=== PATIENT | female | born 1975 | race Caucasian/White ===

== ENCOUNTER 2017-09-03 05:30 | Inpatient (IN) | payer BC ==
[2017-08-31 10:48] LABS: EOSINOPHILS 11.4 % (0-7); HEMATOCRIT 43.6 % (36.0-48.0); HEMOGLOBIN 14.7 g/dL (12-16); IMMATURE GRANULOCYTES 0.2 % (0-5); LYMPHOCYTES 31.6 % (15-50); MCH 29.6 pg (26.0-34.0); MCHC 33.7 g/dL (31.0-37.0); MCV 87.7 fL (80.0-100.0); MEAN PLATELET VOLUME 10.9 fL (7.4-10.4); MONOCYTES 5.7 % (2-11); NEUTROPHILS 50.1 % (40-80); PLATELET COUNT 231 10x3/uL (130-400); RBC 4.97 10x6/uL (4.00-5.40); RDW 12.8 % (11.5-14.5); WBC 6.1 10x3/uL (4.8-10.8)
[2017-08-31 11:01] LABS: CALC OSMOLALITY 276 mosm/kg (275-300); CALCIUM 8.4 mg/dL (8.5-10.1); CARBON DIOXIDE 24.4 mmol/L (21.0-32.0); CHLORIDE - SERUM 106 mmol/L (98-107); CREATININE - SERUM 0.7 mg/dL (0.6-1.3); GLUCOSE 93 mg/dL (74-106); POTASSIUM - SERUM 3.7 mmol/L (3.5-5.1); SODIUM 140 mmol/L (136-145); UREA NITROGEN 6 mg/dL (7-18); eGFR NON AFRICAN AMERICAN > 90 mL/min (90-120)
[2017-09-03] VITALS (10 sets, daily range): BP systolic 122–141; BP diastolic 74–94; BMI 25.9
[~2017-09-03] VITALS: Ht 172.7 cm; Wt 77.3 kg
[~2017-09-03 05:30] MED LIST: AMBIEN10 MG PO; ZESTRIL20 MG PO
[2017-09-03 07:08] LABS: HCG URINE NEGATIVE (NEGATIVE)
--- NOTE | 2017-09-03 13:56 | NUR ---
PT RECEIVED VIA BED TO ROOM 1274 FROM [place] IN PACU. PT DROWSY BUT ALERTS TO VOICE. PT RATING PAIN 8/10, ABDOMINAL. LACTATED RINGERS IV INFUSING TO PT'S RIGHT HAND IV, PATENT WITH NO SIGNS OF PHLEBITIS OR INFILTRATION. OXYGEN VIA N.C. AT 2L. VSS, SEE FLOWSHEET FOR DOC. BANDAIDS OVER 3 LAP INCISIONS ON ABD ARE C/D. NO VAGINAL BLEEDING NOTED, VAGINAL PACKING TAIL SEEN. PERIPAD PLACED TO MONITOR. JOHN CATH DRAINING DARK YELLOW URINE, 160ML EMPTIED FROM UROMETER. SCD'S ON LE BILAT AND CONNECTED TO PUMP. WILL SET UP FISHING VESSEL MATE ORDERED. SRUx2, CL IN REACH. FAMILY TO ROOM AT THIS TIME.
--- NOTE | 2017-09-03 14:49 | NUR ---
DR GOMES PAGED REGARDING PT'S BLOOD PRESSURES. AWAITING CALLBACK.
--- NOTE | 2017-09-03 14:52 | NUR ---
DR GOMES PHONES UNIT, INFORMED OF PT'S BLOOD PRESSURES, QUESTIONED TO IF HOME MED OF LISINOPRIL NEEDS TO BE RESTARTED. DR GOMES ORDERS CLONIDINE 0.2MG PO x1 NOW, AND PLANS TO RESUME HOME MEDS TOMORROW. WILL UPDATE PT AND SPOUSE ON POC.
--- NOTE | 2017-09-03 15:45 | NUR ---
PT ADMIN PO CLONIDINE ORDERED FOR ELEVATED BP'S. PT DENIES NAUSEA. PT PROVIDED WITH WATER AND ENCOURAGED TO DRINK TOLERATING, REPORTING ANY NAUSEA. DARK YELLOW URINE NOTED, DISCUSSED WITH PT AND SPOUSE NEED FOR PO FLUIDS, UNDERSTANDING VERBALIZED. PT C/O PAIN RATED 8/10 ON RIGHT SIDE OF ABD. INCISIONS AND BLEEDING CHECKED, ALL WNL AND NO CHANGE FROM WHEN PT RECEIVED. CYLINDER DYER TEACHING REINFORCED WITH PT AND SPOUSE, UNDERSTANDING VERBALIZED. 0.4MG BOLUS DOSE OF DILAUDID ADMIN ORDERED THROUGH CYLINDER DYER. PT DENIES FURTHER NEEDS AT THIS TIME. SPOUSE AT BEDSIDE. SRUx2, CL IN REACH. WILL CONT TO MONITOR.
--- NOTE | 2017-09-03 16:30 | NUR ---
THIS RN TO ROOM. PT LYING IN BED SUPINE, RESTING WITH EYES CLOSED, RESP EVEN AND UNLABORED. PT ALERTS THIS RN ENTERS ROOM. PT RATES PAIN 8/10. PT ENCOURAGED TO USE LINER INSTALLER, STATES SHE KEEPS FALLING ASLEEP AND FORGETTING TO PUSH LINER INSTALLER BUTTON. 20ML DARK YELLOW URINE EMPTIED FROM UROMETER. 500ML FLUID BOLUS LR INITIATED. LIGHTS IN ROOM DIMMED PER PT REQUEST. CL IN REACH, LINER INSTALLER BUTTON IN REACH AND SECURED. SRUx2, CL IN REACH.
--- NOTE | 2017-09-03 18:00 | NUR ---
THIS RN TO ROOM FOR PT CHECK. PT REQUEST TO CHANGE POSITIONS. PT POSITIONED TO RIGHT TILT, HOB ELEVATED TO 60DEGREES. CLEAR LIQUID DINNER TRAY SET UP FOR PT. PT RATES PAIN 8/10, ABD DISCOMFORT. NO GRIMACE OR GUARDING NOTED. PT ENCOURAGED TO PRESS TRAFFIC MAINTENANCE OFFICER BUTTON IT IS AVAILABLE TO USE. PT PRESSES BUTTON. PT ENCOURAGED TO CONTINUE USING TRAFFIC MAINTENANCE OFFICER WHEN IN PAIN, UNDERSTANDING VERBALIZED. I.S. TEACHING DONE, PT RETURN DEMONSTRATES WITH GOOD EFFORT AND GOOD COUGH. O2 VIA NC REDUCED TO 1L. PERIPAD CHECKED. SMALL DIME SIZED SPOT OF DRIED BLOOD NOTED. BANDAIDS ON ABD INCISIONS REMAIN C/D. 60 ML LIGHT YELLOW URINE EMPTIED FROM UROMETER. PT INFORMED TRAFFIC MAINTENANCE OFFICER BOLUS NOT AVAILABLE UNTIL 1844 PER ORDERED SCHEDULE, AND THAT DR GOMES DID NOT ORDER TORADOL DUE TO "OOZING" DURING PROCEDURE. UNDERSTANDING VERBALIZED. SRUx2, CL IN REACH. WILL CONT TO MONITOR.
--- NOTE | 2017-09-03 18:50 | NUR ---
PT REQUESTS APPLE JUICE TO DRINK, PROVIDED TO PT REQUESTED. PT STATES SHE THINKS SHE WILL WAIT UNTIL BEDTIME FOR BOLUS DOSE VIA SYSTEMS TECHNOLOGIST SO SHE CAN STAY AWAKE AND VISIT WITH FAMILY. PT DENIES FURTHER NEEDS AT THIS TIME. SRUx2, CL IN REACH.
--- NOTE | 2017-09-03 19:20 | NUR ---
O2 CANNULA REMOVED. O2 SAT REMAINS 99% ON RA. CONT. O2 MONITOR IN PLACE. ASSESSMENT PERFORMED. POC DISCUSSED. C/L IN REACH. BED LOW. SR UPX2. FAMLY AT BEDSIDE.
--- NOTE | 2017-09-03 20:26 | NUR ---
Pt repositioned to L side. Tolerated well. No additional needs voiced.
--- NOTE | 2017-09-03 21:40 | NUR ---
PT REQUESTS BOLUS PRN JEWELLERY DESIGNER DOSE. GIVEN ORDERED. JOHN EMPTIED. GOOD OUTPUT NOTED. DENIES ANY OTHER NEEDS OR CONCERNS. C/L IN REACH. BED LOW. SR UPX2.
--- NOTE | 2017-09-03 22:15 | NUR ---
Pt resting with eyes closed. Lights dimmed in room. C/L in reach.
--- NOTE | 2017-09-03 23:11 | NUR ---
Assisted pt to reposition to R side. Extra blanket provided. No further needs voiced. C/L in reach. Bed low. SR upx2.
--- NOTE | 2017-09-04 | NUR ---
Pt resting with eyes closed. NAD noted. C/L in reach. Bed low. SR upx2.
[2017-09-04 02:00] VITALS: BP 108/86
--- NOTE | 2017-09-04 02:00 | NUR ---
To pts room for VS. Pt reports pain is "8/10" and request prn CEREAL MILLER bolus for breakthrough pain. Bolus administered as ordered. Philippe cath has apprx 1100ml urine output noted. Pt repositioned to back and c/l placed in reach. Bed low. SR upx2. No further needs voiced.
--- NOTE | 2017-09-04 02:55 | NUR ---
Pt reports nausea. Requests prn nausea medication. See EMAR for regional medical director. Also provided pt with sprite. IV bag empty. New bag hung. C/L in reach. Bed low. SR upx2. No further needs voiced.
[2017-09-04 03:04] VITALS: BP 108/86; Ht 172.7 cm; Wt 77.3 kg
--- NOTE | 2017-09-04 04:19 | NUR ---
Pt awake. Reports pain is controlled "ok" with prn pain AUTOMOBILE MECHANIC APPRENTICE. Denies need for additional pain intervention. Denies nausea. C/L in reach. Bed low. SR upx2. No other needs voiced.
[2017-09-04 05:22] LABS: BASOPHILS 0.1 % (0-2); EOSINOPHILS 0.1 % (0-7); HEMOGLOBIN 11.7 g/dL (12-16); IMMATURE GRANULOCYTES 0.2 % (0-5); LYMPHOCYTES 9.6 % (15-50); MCH 29.1 pg (26.0-34.0); MCHC 32.5 g/dL (31.0-37.0); MCV 89.6 fL (80.0-100.0); MEAN PLATELET VOLUME 11.2 fL (7.4-10.4); MONOCYTES 5.2 % (2-11); NEUTROPHILS 84.8 % (40-80); PLATELET COUNT 220 10x3/uL (130-400); RBC 4.02 10x6/uL (4.00-5.40); RDW 13.1 % (11.5-14.5); WBC 12.5 10x3/uL (4.8-10.8)
[2017-09-04 06:00] VITALS: BP 111/61
--- NOTE | 2017-09-04 06:00 | NUR ---
TO ROOM FOR VS. EMPTIED JOHN. APPRX 1600ML URINE NOTED. IV INFUSION TOTALS CLEARED. PT GIVEN SPRITE AND WATER PER REQUEST. REPORTS MILD NAUSEA. GIVEN SALTINE CRACKERS TO EASE. NO OTHER NEEDS VOICED. C/L IN REACH. BED LOW. SR UPX2.
--- NOTE | 2017-09-04 07:54 | OP ---
PATIENT NAME: NOAH SMITH MEDICAL RECORD: [id number] :79 LOCATION:[facility] .1274 ADMISSION DATE:09/03/17 SURGEON: JOSE RAUL GOMES MD DATE OF OPERATION: 09/03/2017 PREOPERATIVE DIAGNOSES: 1. Rectocele. 2. Dysmenorrhea. POSTOPERATIVE DIAGNOSES: 1. Rectocele. 2. Dysmenorrhea. 3. Endometriosis. PROCEDURES PERFORMED: 1. Diagnostic laparoscopy. 2. Fulguration of endometriosis. 3. Bilateral salpingectomy. 4. Laparoscopically assisted vaginal hysterectomy. 5. Posterior colporrhaphy. SURGEON: Jose Raul Gomes MD ANESTHESIOLOGIST: Dr. Bhatt. ANESTHETIC: General. FINDINGS: Second-degree rectocele noted. Uterine prolapsed, first degree. The left ovary is unremarkable. The right ovary with active endometriosis implants in 2 spots. Cul-de-sac with active endometriosis. Both tubes are unremarkable. SPECIMENS REMOVED: 1. Uterus with cervix and tubes. 2. Vaginal mucosa. SPECIMEN DISPOSITION: All specimens to pathology. ESTIMATED BLOOD LOSS: 550 cc. FLUIDS: 1600 cc lactated Ringer's. URINE OUTPUT: 200 cc of clear urine. COMPLICATIONS: None. DRAINS: Philippe to gravity. INDICATIONS: The patient is a 41-year-old female with severe pelvic pain, dyspareunia and dysmenorrhea. The patient also has symptomatic rectocele. DESCRIPTION OF PROCEDURE: After informed consent was assured, the patient was taken to the operating room where anesthetic was obtained and she was placed in [facility]. She is now prepped and draped and incision was made at the umbilicus to accommodate a 5-mm trocar which was inserted. Pneumoperitoneum was developed. Accessory ports were placed in the right and left lower quadrants. OPERATIVE REPORT [id number] NOAH SMITH The uterus was noted to be retroverted and upon placing the patient in Trendelenburg position, sweeping the bowel free, active endometriosis is identified. This was fulgurated using Harmonic scalpel. After fulguration of the endometriosis, attention was directed to the right tube where it is removed from its attachments to the adnexa. Dissection was carried down over the uterine ovarian ligament across the broad ligament and the bladder flaps developed to the midline. This repeated on the contralateral side. Again, the tube was from its attachments to the adnexa. The dissection of the broad ligament is performed and the bladder flap fully developed. Attention was now directed to the vagina and the legs were positioned for the vaginal portion of the case. The long weighted speculum was introduced. The peritoneum grasped with Allis clamp and using Malloy scissors, the posterior cul-de-sac entered. The peritoneum was tacked to the mucosa and then Darlene clamps used to extend the incision both right and left side incorporating the uterosacral ligaments. Long billed weighted speculum was introduced and Bovie cautery is used to mobilize the mucosa over the cervix anteriorly. The peritoneum anteriorly was entered sharply and a Orange retractor was placed in the anterior opening. The remaining portion of the cardinal and broad ligaments were serially clamped, cut and tied until the uterus was removed. Upon removal of the uterus, bleeding vessel noted on the right side, which was grasped with an Allis clamp and a [id number]-xfraw stitch applied for hemostasis. The cuff was now closed horizontally. The initial stitch anchoring the uterosacral ligament to the vaginal cuff in the corner, these were interrupted stitches going from right to left. Once the cuff was closed, attention was directed to the perineal body, where 2 Allis clamps were placed at the 5 and 7 o'clock and a 15 blade used to incise this and a everted Chevron placed over the perineal body. The skin and mucosa is now removed. The mucosa is undermined to the apex of the posterior defect. Full thickness dissection begins sharply and is concluded bluntly using cottonoids. Once the mucosa is fully mobilized over the defect, the endopelvic fascia from the left was plicated to the right using a horizontal mattress stitch. Five of these stitches were placed to remove posterior defect. Mucosa is now trimmed and closed with 2-0 Vicryl in a running fashion. The perineal body was reapproximated with 2-0 stitch and subcuticular stitch was placed over the perineal body. Vaginal packing is placed and then attention is now directed back to the abdomen where the pneumoperitoneum was reestablished and inspection of the ovaries reveals adequate hemostasis on the right. On the left, small amount of bleeding is noted at the remnant of the uterine ovarian ligament and this was cauterized with Harmonic scalpel. Pelvis is irrigated, irrigant removed and pneumoperitoneum released and all trocars were removed. Skins were approximated. Sponge, lap, needle counts correct times 2 at the close of the procedure. TRANSINT:[id number] Voice Confirmation ID: [id number] DOCUMENT ID: [id number] JOSE RAUL GOMES MD at 0754 CC: [id number] DICTATION DATE: 09/03/17 1315 WIRE STRAIGHTENING MACHINE OPERATOR: 09/03/17 1417 ADM IN [address] [id number] [place] [address]
[2017-09-04 08:15] VITALS: BP 113/72
--- NOTE | 2017-09-04 08:15 | NUR ---
To room for am assesment pt is awake but has lights out and arm over her eyes, verbally OK's for light to be turned on but states that she has a "bad headache" and rates overall pain at 8 with times it is a 10/10. VSS and assesment as charted on flowsheet. Abd soft to touch and bandaids clean and dry. Pt states understanding that howell and vag packing has to remain in place until noon, howell cath noted to have 100ml clear urine but when tubing is moved additional 300ml emptied. SCD's on bilat and pump is working. Pt complains of nausea that she believes is due to her headache. Questioned about daily caffiene intake and she admits to "alot" and spouse states "Coke is all she drinks" Orders verified that diet has been advanced, pt offered a coke and she quickly agrees. Denies any questions at this time. Bed in low position with side rails up x2, phone and call light in reach. Pt has her customer facilities supervisor button in hand, spouse on couch at bedside.
[2017-09-04] MEDS ORDERED: EFFEXOR XR37.5 MG PO (08:23)
--- NOTE | 2017-09-04 10:30 | NUR ---
pt resting on her right side, eyes closed and resp even, no distress noted. Pt left undisturbed at this time. Side rails noted to be up x 2 weth call ligth and phone with in her reach.
--- NOTE | 2017-09-04 12:15 | NUR ---
This rn to room to remove howell and vag packing. Pt is awake and sitting up in bed, rates pain at 4/10 and states that she was able to eat about half her lunch, denies any feelings of nausea at this time. IV saline locked and flushed easily with 5ml NS. Pt able to position herself on to her back with knees flexed to side. Howell bulb deflated slowly, Pt instructed to take a deep breath and as she released
--- NOTE | 2017-09-04 13:30 | NUR ---
Pt calls out for nurse with a request for Pain med. This rn to room, rates pain "all over my lower stomach" Pt given meds as charted on emar.
--- NOTE | 2017-09-04 15:15 | NUR ---
pt resting on right side with eyes closed and resp even, denies any needs at this time. side rails up x 2 with call ligth in reach.
--- NOTE | 2017-09-04 17:24 | NUR ---
Dr Reyna at bedside talking with pt about discharge vs staying in hospital. Pt request to go home and states understanding of scripts that will be given and follow in clinic in 2weeks for post op visit. Pt denies any questions or concerns at this time.
[2017-09-04] MEDS ORDERED: PERCOCET 7.5/321 TAB PO (18:42)
[2017-09-04] MEDS ORDERED: IBUPROFEN800 MG PO (18:44)
--- NOTE | 2017-09-04 19:10 | NUR ---
Verbal and written discharge instructions given with written scipts for Percocet 7.5mg and Motrin 800mg. Pt states understanding of do/don't post op and s/s of infection. Denies any questions or concerns. Wheelchair offered but she refuses. Amb with pt to front door, home by private car with spouse.
--- NOTE | 2017-09-07 07:19 | DS ---
PATIENT:NOAH SMITH :79 MEDICAL RECORD: [id number] DISCHARGE SUMMARY ADMISSION DATE: 09/03/17 DISCHARGE DATE: 09/04/17 DATE OF ADMISSION: 09/03/2017 DATE OF DISCHARGE: 09/04/2017 ADMISSION DIAGNOSES: Pelvic organ prolapse as evident by uterine prolapse and rectocele. DISCHARGE DIAGNOSES: Pelvic organ prolapse as evident by uterine prolapse and rectocele. PROCEDURE: Laparoscopically-assisted vaginal hysterectomy and posterior colporrhaphy. SURGEON: Forest Gomes MD HISTORY OF PRESENT ILLNESS: See the H&P in the chart. SUMMARY OF HOSPITALIZATION: The patient was admitted and underwent procedure. The patient has done well, on postoperative day #1, is voiding without difficulty and tolerating regular diet. The patient has transitioned from intravenous to oral pain medications. The patient will be discharged home on Percocet and Motrin for her pain management. The patient has been given lifting precautions as well as standard postoperative precautions. She will follow up in the clinic in 2 weeks. TRANSINT:[id number] Voice Confirmation ID: [id number] DOCUMENT ID: [id number] FOREST GOMES MD at 0719 CC: [id number] DICTATION DATE: 09/04/17 1734 ALGOLOGIST: 09/05/17 1042 DIS IN 09/04/17 [id number] [place] [address]
== END 2017-09-04 19:13 | disposition home or self-care (01) | DRG 743 ==
LOC: D.OPS 05:30 → D.PAN 08:30 → D.OPS 08:30 → D.LD 13:43 → D.OPS 13:44 → D.LD 13:44
PROVIDERS: ADMIT Obstetrics & Gynecology
PROC: 0U598ZZ Destruction of Uterus, Via Natural or Artificial Opening Endoscopic (ICD-10-PCS; 2017-09-03)
PROC: 0JQC3ZZ Repair Pelvic Region Subcutaneous Tissue and Fascia, Percutaneous Approach (ICD-10-PCS; 2017-09-03)
PROC: 0UT9FZZ Resection of Uterus, Via Natural or Artificial Opening With Percutaneous Endoscopic Assistance (ICD-10-PCS; principal; 2017-09-03 08:30)
PROC: 0UT7FZZ Resection of Bilateral Fallopian Tubes, Via Natural or Artificial Opening With Percutaneous Endoscopic Assistance (ICD-10-PCS; 2017-09-03 08:30)
DX: N81.6 Rectocele (principal); N94.6 Dysmenorrhea, unspecified; N80.0 Endometriosis of uterus